=== PATIENT | female | born 1975 | race Caucasian/White ===

== ENCOUNTER 2020-08-24 08:04 | Outpatient (REF) | payer OTHER, SELFPAY | END 2020-08-24 08:05 | disposition home or self-care (01) | LOC: HO.LAB 08:04 | PROVIDERS: Visit Provider Internal Medicine | DX: Z20.822 Contact with and (suspected) exposure to COVID-19 (principal) | CPT/HCPCS: 36415; C9803; U0003; U0005 ==

== ENCOUNTER 2024-03-14 16:56 | Emergency (ER) | payer OTHER, SELFPAY ==
--- NOTE | ~2024-03-14 | XR_ITS ---
EXAMINATION: XR LUMBOSACRAL SPINE CLINICAL INFORMATION: Low back pain COMPARISON: None available. TECHNIQUE: Three views of the lumbosacral spine. FINDINGS: There is a mild scoliosis convex to the right. Mild degenerative changes are seen with some disc space narrowing at L1-L2 and L2-L3. Some minimal endplate sclerosis is seen. A right total hip prosthesis is present. Surgical clips are present in the right upper quadrant. XR/XR lumbar spine 2-3V IMPRESSION: Mild degenerative changes in the lumbar spine. Electronically signed by: Jose Larson MD 03/14/2024 07:05 PM EDT
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
[2024-03-14] MEDS: Acetaminophen 325 MG TABLET 650 MG PO (18:02)
[2024-03-14 18:03] VITALS: BMI 29.7
[2024-03-14 18:15] VITALS: BP 135/69; PULSE 69; RESP 16; TEMP 36.3; O2SAT 98
[2024-03-14 18:56] VITALS: BP 133/78; PULSE 96; RESP 20; TEMP 36.6; O2SAT 95; BMI 29.7
[2024-03-14 20:24] VITALS: BP 133/78; PULSE 96; RESP 20; TEMP 36.6; O2SAT 95
== END 2024-03-14 20:24 | disposition home or self-care (01) ==
PROVIDERS: Emergency Provider Emergency Medicine; PCP Internal Medicine
DX: Z04.1 Encounter for examination and observation following transport accident (principal); R51.9 Headache, unspecified; M54.2 Cervicalgia; M54.50 Low back pain, unspecified
CPT/HCPCS: 70450; 72100; 72125; 99283; 99284